=== PATIENT | male | born 1985 | race Caucasian/White ===

== ENCOUNTER 2020-06-28 11:58 | Outpatient (REF) | payer OTHER, MEDICAID, SELFPAY | END 2020-06-28 11:59 | disposition home or self-care (01) | LOC: HO.LAB 11:58 | PROVIDERS: Visit Provider Internal Medicine | DX: Z20.828 Contact with and (suspected) exposure to other viral communicable diseases (principal) | CPT/HCPCS: C9803; U0003 ==

== ENCOUNTER 2020-10-09 15:09 | Outpatient (REF) | payer MEDICAID, SELFPAY ==
[2020-10-09 16:03] LABS: COVID-19 Test Negative (Negative)
== END 2020-10-09 15:10 | disposition home or self-care (01) ==
LOC: HO.LAB 15:09
PROVIDERS: Visit Provider Internal Medicine
DX: Z20.822 Contact with and (suspected) exposure to COVID-19 (principal)
CPT/HCPCS: 36415; 87635; C9803

== ENCOUNTER 2020-10-17 15:10 | Outpatient (REF) | payer MEDICAID, SELFPAY ==
[2020-10-17 15:48] LABS: COVID-19 Test Negative (Negative)
== END 2020-10-17 15:11 | disposition home or self-care (01) ==
LOC: HO.LAB 15:10
PROVIDERS: Visit Provider Internal Medicine
DX: Z20.822 Contact with and (suspected) exposure to COVID-19 (principal)
CPT/HCPCS: 36415; 87635; C9803

== ENCOUNTER 2020-10-26 13:44 | Outpatient (REF) | payer MEDICAID, SELFPAY ==
[2020-10-26 14:12] LABS: COVID-19 Test Negative (Negative)
== END 2020-10-26 13:45 | disposition home or self-care (01) ==
LOC: HO.LAB 13:44
PROVIDERS: Visit Provider Internal Medicine
DX: Z20.822 Contact with and (suspected) exposure to COVID-19 (principal)
CPT/HCPCS: 36415; 87635; C9803

== ENCOUNTER 2020-10-29 12:32 | Outpatient (REF) | payer MEDICAID, SELFPAY | END 2020-10-29 12:33 | disposition home or self-care (01) | LOC: HO.LAB 12:32 | PROVIDERS: Visit Provider Internal Medicine | DX: Z20.822 Contact with and (suspected) exposure to COVID-19 (principal) | CPT/HCPCS: C9803; U0003; U0005 ==

== ENCOUNTER 2020-12-19 09:16 | Outpatient (REF) | payer MEDICAID, SELFPAY | END 2020-12-19 09:17 | disposition home or self-care (01) | LOC: HO.LAB 09:16 | PROVIDERS: Visit Provider Internal Medicine | DX: Z20.822 Contact with and (suspected) exposure to COVID-19 (principal) | CPT/HCPCS: C9803; U0003; U0005 ==

== ENCOUNTER 2021-03-25 13:39 | Outpatient (REF) | payer MEDICAID, SELFPAY | END 2021-03-25 13:40 | disposition home or self-care (01) | LOC: HO.LAB 13:39 | PROVIDERS: Visit Provider Internal Medicine | DX: Z20.822 Contact with and (suspected) exposure to COVID-19 (principal) | CPT/HCPCS: C9803; U0003; U0005 ==

== ENCOUNTER 2021-04-01 15:05 | Outpatient (REF) | payer MEDICAID, SELFPAY | END 2021-04-01 15:06 | disposition home or self-care (01) | LOC: HO.LAB 15:05 | PROVIDERS: Visit Provider Internal Medicine | DX: Z20.822 Contact with and (suspected) exposure to COVID-19 (principal) | CPT/HCPCS: C9803; U0003; U0005 ==

== ENCOUNTER 2021-05-17 20:21 | Emergency (ER) | payer MEDICAID, SELFPAY ==
[2021-05-17 20:44] VITALS: BP 128/76; PULSE 84; RESP 18; TEMP 36.9; O2SAT 98; BMI 20.3
--- NOTE | 2021-05-17 21:20 | ED.EXTPRO ---
HPI - Extremity Problem General Chief complaint: General Medical Stated complaint: Left foot pain, no injury Time Seen by Provider: 05/17/21 21:19 Source: patient Mode of arrival: ambulatory Limitations: no limitations History of Present Illness HPI Narrative: Patient has no significant past medical history was cleaning his feet to 3 days ago for last 2 days noticed redness and swelling of the left foot starting from left 4th and 5th digit spreading to the wing no fever no chills patient has no history of cellulitis in the past no open wounds Related Data Previous Rx's Medication Instructions Recorded cephalexin 500 mg capsule 500 mg PO QID 10 Days #40 cap 05/17/21 doxycycline hyclate 100 mg tablet 100 mg PO BID #20 tab 05/17/21 ibuprofen 600 mg tablet 600 mg PO Q6H PRN #20 tab 05/17/21 Allergies Allergy/AdvReac Type Severity Reaction Status Date / Time diazepam [From VALIUM] Allergy Unknown AGITATION Verified 05/17/21 20:43 Review of Systems Review of Systems: Yes all other systems are reviewed and are negative PMFSH Past Medical History Medical History Asthma Surgical History History of heart surgery History of kidney surgery Social History Social History Advance Directives: No Physical Exam Vital Signs: Vital Signs: Last Vital Signs Temp 98.5 F 05/17/21 20:44 Pulse 84 05/17/21 20:44 Resp 18 05/17/21 20:44 BP 128/76 05/17/21 20:44 Pulse Ox 98 05/17/21 20:44 Body Mass Index 20.3 Const: General: comfortable and no acute distress Orientation/consciousness: patient oriented x3 HENMT: Head: Yes normocephalic and Yes atraumatic Resp: Effort & Inspection: normal respiratory effort Auscultation: clear to auscultation bilaterally Cardio: Rate: regular rate Rhythm: regular rhythm Heart sounds: S1 normal heart sound present and S2 normal heart sound present GI: Inspection: Yes normal to inspection Neuro: General: patient oriented x3 and no focal motor deficits Extrem: Ankle/foot/toe images: 1. Erythema with swelling radiating to the left wing no crepitus no open wound MDM - Extremity (Nontraumatic) MDM Narrative Medical decision making narrative: Patient has cellulitis of left foot uncomplicated nondiabetic patient will start patient on doxycycline and Keflex Discharge Plan Discharge Clinical Impression: Cellulitis of foot, left Patient Disposition: Home, Self-Care Instructions: Cellulitis (ED) Additional Instructions: Local care as advised Keep your left foot elevated Take antibiotics as advised Report to the PCP/ER if spreading of the redness/swelling/high fever Prescriptions: New cephalexin 500 mg capsule 500 mg PO QID 10 Days Qty: 40 RF: 0 ibuprofen 600 mg tablet 600 mg PO Q6H PRN (Reason: pain) Qty: 20 RF: 0 doxycycline hyclate 100 mg tablet 100 mg PO BID Qty: 20 RF: 0
[2021-05-17] MEDS: cephALEXin 500 MG CAPSULE 1000 MG PO (21:34)
== END 2021-05-17 21:44 | disposition home or self-care (01) ==
PROVIDERS: Emergency Provider Internal Medicine
DX: L03.116 Cellulitis of left lower limb (principal)
CPT/HCPCS: 99283

== ENCOUNTER 2021-07-16 15:35 | Outpatient (REF) | payer MEDICAID, SELFPAY ==
[2021-07-16 16:06] LABS: Binax Internal Control QC Valid; Binax Now Covid-19 Ag Positive (Negative)
== END 2021-07-16 15:36 | disposition home or self-care (01) ==
LOC: HO.LAB 15:35
PROVIDERS: Visit Provider Internal Medicine
DX: Z20.822 Contact with and (suspected) exposure to COVID-19 (principal)
CPT/HCPCS: C9803

== ENCOUNTER 2021-07-23 14:34 | Outpatient (REF) | payer MEDICAID, SELFPAY ==
[2021-07-23 15:55] LABS: Binax Internal Control QC Valid; Binax Now Covid-19 Ag Negative (Negative)
== END 2021-07-23 14:35 | disposition home or self-care (01) ==
LOC: HO.LAB 14:34
PROVIDERS: Visit Provider Internal Medicine
DX: Z20.822 Contact with and (suspected) exposure to COVID-19 (principal)
CPT/HCPCS: C9803

== ENCOUNTER 2022-06-06 12:51 | Outpatient (REF) | payer MEDICAID, SELFPAY ==
[2022-06-06 13:34] LABS: COVID-19 Test Positive (Negative); IDNOW Serial# 55D5AD1C
== END 2022-06-06 12:52 | disposition home or self-care (01) ==
LOC: HO.LAB 12:51
PROVIDERS: Visit Provider Internal Medicine
DX: Z20.822 Contact with and (suspected) exposure to COVID-19 (principal)
CPT/HCPCS: 87635; C9803

== ENCOUNTER 2025-04-03 15:48 | Emergency (ER) | payer MEDICAID, SELFPAY ==
[2025-04-03 16:10] VITALS: BP 130/58; PULSE 64; RESP 16; TEMP 36.6; O2SAT 97; BMI 20.2
--- NOTE | 2025-04-03 16:10 | ED_ITS ---
HPI - General Adult General Chief complaint: Eye Problems Stated complaint: Eye irritation Time Seen by Provider: 04/03/25 16:13 Source: patient Mode of arrival: ambulatory Limitations: no limitations History of Present Illness ED Provider: Katerina Hull PA-C HPI narrative: Patient is a 40 year old assigned male at with a history of asthma presenting to the emergency department today with bilateral eye irritation. Patient states that 2 days ago his left eye was bothering him and became very red and itchy then he itched his right eye and now both of them are bothering him. Patient denies any other complaints at this time. Onset (ago): day(s) (2) Related Data Previous Rx's ?Medication ?Instructions ?Recorded cephalexin 500 mg capsule 500 mg PO QID 10 days #40 ca ps 05/17/21 doxycycline hyclate 100 mg tablet 100 mg PO BID #20 ta bs 05/17/21 ibuprofen 600 mg tablet 600 mg PO Q6H PRN pain #20 t abs 05/17/21 erythromycin 5 mg/gram (0.5 %) eye 0.5 inch ophthalmic (eye) Q4H #3.5 04/03/25 ointment grams Allergies Allergy/AdvReac Type Severity Reaction Status Date / Time diazepam (From VALIUM) Allergy Unknown AGITATION Verified 04/03/25 16:11 Review of Systems Constitutional: Constitutional: Reports as per HPI Eyes: Eyes: Reports as per HPI ENT: Reports as per HPI Cardiovascular: Cardiovascular: Reports as per HPI Respiratory: Respiratory: Reports as per HPI Gastrointestinal: Gastrointestinal: Reports as per HPI Genitourinary: Genitourinary: Reports as per HPI Musculoskeletal: Musculoskeletal: Reports as per HPI Integumentary/Breasts: Skin/Breast: Reports as per HPI Neurologic: Reports as per HPI Psychiatric: Psychiatric: Reports as per HPI Endocrine: Endocrine: Reports as per HPI Hematologic/Lymphatic: Hematologic/Lymphatic: Reports as per HPI Allergic/Immunologic: Allergic/Immunologic: Reports as per HPI PMF Past Medical History Attestation statement: The following information was validated with the patient. Source: old records reviewed and nursing notes reviewed Medical History Asthma Surgical History History of kidney surgery History of heart surgery Social History Social History Do you have a plan to hurt others: No Plan Physical Exam ED Vital Signs: Vital Signs - 24 hr 04/03/25 16:10 Temperature 97.8 F Pulse Rate 64 Respiratory Rate 16 Blood Pressure 130/58 L Pulse Oximetry 97 Oxygen Delivery Method Room Air BMI result Body Mass Index 20.2 Const General: cooperative, no acute distress, alert and awake Nutritional Appearance: well nourished Orientation/consciousness: patient oriented x3 HENMT Head: Yes normal to inspection and Yes atraumatic Ears: hearing grossly normal bilaterally and external ears normal General nose exam: Normal external nose present, no nasal discharge noted and no epistaxis Face and sinus: Yes normal facial exam, No abrasion and No laceration Mouth: Normal oral and palatal mucosa present, no drooling and no muffled voice Eyes Other: erythematous conjunctiva bilaterally with minimal crusting - consistent with bilateral conjunctivitis Pupils: Equal, round and reactive pupils present EOM: EOMs intact bilaterally Neck Neck: Yes normal visual inspection and Yes full ROM Resp Effort & Inspection: normal respiratory effort and able to speak in complete sentences Neuro General: patient oriented x3, moves all extremities and CN's II-XI intact bilaterally Cranial nerves: Yes Equal, round and reactive pupils present Cognition (Neuro): normal cognition Extrem General: Yes normal to inspection, Yes full ROM and Yes capillary refill normal Psych Appearance: grossly normal Mental Status: mental status grossly normal Affect: normal affect Attitude: cooperative Thought process: Normal thought process present Thought content: Normal thought content present Insight: Good insight present (Psych) Medical Decision Making Medical Decision Making MDM Narrative: Patient is a 40 year old assigned male at with a history of asthma presenting to the emergency department today with bilateral eye irritation. Patient's physical exam was as noted in the physical exam portion of this note and consistent with conjunctivitis. I explained my physical exam findings to the patient. I answered all questions asked by the patient. I stressed the importance of the patient using his medication as directed (either prescribed or as the over the counter packaging recommends). I stressed the importance of the patient following up with his primary care provider. I stressed the importance of the patient returning to the emergency department immediately if his symptoms were to worsen or if he were to develop any dizziness, shortness of breath, difficulty breathing, chest pain, blurry vision, loss of vision, nausea, vomiting, abdominal pain, fever, chills, back pain, or any other complaints. Patient verbalized agreement and understanding with this treatment plan and discharge. Differential Diagnosis Differential Diagnoses: The differential diagnosis associated with the presentation includes Conjunctivitis Admission/Observation Consideration of admission/observation: Escalation of care including admission/observation considered Patient would have been admitted to the hospital had his clinical presentation warranted hospital admission. Prescription Management I considered prescription management with: Antibiotic (patient prescribed antibiotic ointment) Discharge Plan Discharge Clinical Impression: Conjunctivitis Patient Disposition: Home, Self-Care Instructions: Conjunctivitis (ED) Additional Instructions: You have conjunctivitis (pink eye). Please use your antibiotic as prescribed. IF you are prescribed home medications and/or you are taking over the counter medications at home - it is very important you continue to do so as prescribed / directed unless told otherwise. Follow up with a primary care provider. Return to the emergency department immediately if your symptoms worsen or if you develop any numbness, tingling, dizziness, shortness of breath, difficulty breathing, chest pain, blurry vision, loss of vision, nausea, vomiting, abdominal pain, fever, chills, back pain, or any other complaints. If you do not have a primary care provider - call any of the below numbers to establish and follow up with a primary care provider. [facility] Primary Care ([place]) [phone] [place] [address], [id number] [facility] Primary Care ([address] [place]) [phone] [place] [address], [address] [facility], [address] [facility] Primary Care ([address] [place]) [phone] [place] [address], [address] [facility], [id number] [facility] Primary Care ([place]) [phone] [place] [address], [address] [facility], [address] [facility] Family Medicine [phone] [place] [address], [address] Please see the information below about our Patient Portal. If you are not yet enrolled in the [facility] Patient Portal, you will receive an enrollment email invitation following your visit to any [facility] setting. You may also self-enroll in the Patient Portal by visiting our website: [email or web address] The following information is required to access the Patient Portal: - Your [facility] Medical Record Number - Your personal home email address (must match what is in your electronic medical record, Registration staff can assist with this) - Name - Date of Capabilities of the Patient Portal: - Message some providers - View upcoming appointments - Access your health summary, medical history, and visit history - View current conditions and allergies - View procedure and lab results - View your medications, including guidelines, side effects, and precautions - Complete pre-appointment questionnaires requested by your provider - Ready summary reports of your office visits and procedures To access the Patient Portal Mobile [employer], follow these directions: - Search youbeQ - Maps [employer] in the [employer] Store or [employer] Store - Download the Nathaniel - Search for [facility] - Enter your login/password Prescriptions: New erythromycin 5 mg/gram (0.5 %) ointment 0.5 inch ophthalmic (eye) Q4H Qty: 3.5 0RF No Action cephalexin 500 mg capsule 500 mg PO QID 10 Days Qty: 40 0RF ibuprofen 600 mg tablet 600 mg PO Q6H PRN (Reason: pain) Qty: 20 0RF doxycycline hyclate 100 mg tablet 100 mg PO BID Qty: 20 0RF Stand Alone Forms: Work/School Release Print Language: Upper Sorbian
[2025-04-03 17:06] VITALS: BP 130/58; PULSE 64; RESP 16; TEMP 36.6; O2SAT 97
--- OUTSIDE RECORDS SUMMARY | 2025-04-03 18:17 | XMS_ITS | Clinical Summary ---
Author Organization [employer] Address [address] [place] [address] Care Team Providers Care Formulation Chemist Name Role Phone Unavailable Primary Care Provider Unavailabl e Social History Tobacco Use Types Packs/Day Years Used Date Smoking Tobacco: Never Assessed Sex and Gender Information Value Date Recorded Sex Assigned at Not on file Legal Sex Male 1:47 PM EST Gender Identity Not on file Sexual Orientation Not on file Plan of Treatment Health Maintenance Due Date Last Done Comments Depression Screening 1987 HIV Screening 1987 Lipid Panel 1987 SDOH Screening 1987 Disability Screening 1987 Alcohol/Substance Use Screening 1999 Tobacco Screening 1999 Family Planning (PISQ) 2002 HPV Vaccines (1 - Male 3-dos e series) 2002 Hepatitis C Screening 2005 DTaP/Tdap/Td Vaccines (1 - Tdap) 2006 Hepatitis B Vaccines (1 of 3 - 19+ 3-dose series) 2006 COVID-19 Vaccine (1 - 2023-2 5 season) 2025 Influenza Vaccine (#1) 2025 Zoster Vaccines (1 of 2) 2037 RSV Patients and Pa tients Aged 60 years or older (1 - 1-dose 75+ series) 2062 HIB Vaccines Aged Out No longer eligi ble based on patient's age to complete this topic Hepatitis A Vaccines Aged Out No long er eligible based on patient's age to complete this topic IPV Vaccines Aged Out No longer eligi ble based on patient's age to complete this topic Meningococcal B Vaccine Aged Out No l onger eligible based on patient's age to complete this topic Meningococcal Vaccine Aged Out No nolan [place] eligible based on patient's age to complete this topic Pneumococcal Vaccine: Pediat rics (0 to 5 Years) and At-Risk Patients (6 to 49) Years Aged Out No longer eligible b ased on patient's age to complete this topic RSV under 20 months Aged Out No longe r eligible based on patient's age to complete this topic Rotavirus Vaccines Aged Out No longer eligible based on patient's age to complete this topic
== END 2025-04-03 16:20 | disposition home or self-care (01) ==
PROVIDERS: Emergency Provider Emergency Medicine
DX: H10.9 Unspecified conjunctivitis (principal); H57.13 Ocular pain, bilateral
CPT/HCPCS: 99282; 99283